=== PATIENT | male | born 1975 | race African-American/Black ===

== ENCOUNTER 2016-10-11 23:46 | Emergency (ER) | payer BC ==
[~2016-10-11 23:46] MED LIST: ASPIRIN PO; ELIMITE60 GM TOP; LISINOPRIL PO; NORVASC10 MG PO; PREDNISONE PO; SULAR PO; ZESTORETIC 20/21 TAB PO
[2016-10-11 23:57] LABS: URINE SOURCE CLEAN CATCH
[2016-10-12 00:03] LABS: URINE APPEARANCE CLEAR; URINE BILIRUBIN NEG (NEG); URINE BLOOD 3+ (NEG); URINE COLOR YELLOW; URINE GLUCOSE NEG (NEG); URINE KETONE NEG (NEG); URINE LEUKOCYTE ESTERASE TRACE (NEG); URINE NITRATE NEG (NEG); URINE PROTEIN NEG (NEG); URINE SPECIFIC GRAVITY 1.019 (1.003-1.035); URINE UROBILINOGEN 0.2 MG/DL (NEG)
[2016-10-12 00:06] LABS: URBCS1 AUWI INNUM /[HPF] (0-2); URINE BACTERIA AUWI NEG (NEGATIVE); URINE SQUAMOUS EPITHELIAL CELL NONE SEEN /[HPF]
[2016-10-12 00:07] LABS: CULTURE INDICATED? NO
== END 2016-10-12 00:40 | disposition home or self-care (01) ==
LOC: CFTX 23:46
PROVIDERS: Physician Assistant
DX: S37.33XA Laceration of urethra, initial encounter (principal); I10 Essential (primary) hypertension; F17.210 Nicotine dependence, cigarettes, uncomplicated; X58.XXXA Exposure to other specified factors, initial encounter
CPT/HCPCS: 81003; 99282; 99283